=== PATIENT | female | born 1945 | race Caucasian/White ===

== ENCOUNTER 2023-10-21 08:12 | Outpatient (CLI) | payer OTHER ==
[~2023-10-21 08:12] MED LIST: AURALGAN OTIC S14 ML OT; CATAFLAM50 MG PO; CEFTIN500 MG PO; ZYNCOF 20-400120 ML PO
[2023-10-21 09:26] LABS: URINE APPEARANCE Clear; URINE BILIRRUBIN Negative (NEGATIVE); URINE BLOOD Small; URINE COLOR Yellow; URINE GLUCOSE Negative (NEGATIVE); URINE LEUKOCYTE Negative; URINE NITRATE Negative; URINE PROTEIN Negative (NEGATIVE); URINE UROBILINOGEN 0.2 E.U./dl
[2023-10-21 09:29] LABS: URINE BACTERIA 36.5 uL (0.0-1933); URINE EPITHELIAL CELLS 3.2 uL (0.0-38.8); URINE RBC 11.9 uL (0.0-20.8)
[2023-10-21 09:38] LABS: HEMATOCRIT 36.8 % (36.0-45.00); HEMOGLOBIN 12.6 g/dL (12.0-15.00); MEAN CELL VOLUME 98.5 fL (80.00-100.00); MEAN CORPUSCULAR HEMOGLOBIN 33.8 pg (27.00-32.0); MEAN CORPUSCULAR HGB CONC 34.3 g/dl (32.0-36.0); PLATELET COUNT 219 K/uL (150-450); RED BLOOD COUNT 3.73 M/uL (4.00-6.00); RED CELL DISTRIBUTION WIDTH 13.8 % (11.5-14.5)
[2023-10-21 10:37] LABS: ALBUMIN 3.4 gm/dL (3.4-5.0); BILIRUBIN TOTAL 0.58 mg/dL (0.3-1.2); CALCIUM 9.8 mg/dL (8.5-10.1); CHOL HDL RATIO 2.5 (0-5.0); CREATININE SERUM 0.74 mg/dL (0.55-1.02); GFR 76.51; GLOBULINA 3.4 G/DL (2.4-3.5); POTASSIUM 4.08 mEq/L (3.5-5.1); T4 FREE 1.16 NG/ML (0.76-1.46); TOTAL PROTEIN 6.8 gm/dL (6.4-8.2); TSH 1.87 uIU/mL (0.358-3.74)
== END 2023-10-21 16:15 | disposition home or self-care (01) ==
LOC: LAB 08:12
PROVIDERS: ATTEND Specialist
DX: N83.299 Other ovarian cyst, unspecified side (principal); Z12.73 Encounter for screening for malignant neoplasm of ovary; R97.8 Other abnormal tumor markers; R97.0 Elevated carcinoembryonic antigen [CEA]; I10 Essential (primary) hypertension; E78.2 Mixed hyperlipidemia; E03.8 Other specified hypothyroidism; E55.9 Vitamin D deficiency, unspecified

== ENCOUNTER 2023-11-03 09:38 | Outpatient (CLI) | payer OTHER | END 2023-11-03 12:43 | disposition home or self-care (01) | LOC: LAB 09:38 | PROVIDERS: ATTEND Obstetrics & Gynecology Gynecology | DX: D27.1 Benign neoplasm of left ovary (principal) ==